=== PATIENT | male | born 1990 | race African-American/Black ===

== ENCOUNTER 2022-12-11 11:21 | Emergency (ER) | payer OTHER, SELFPAY ==
[2022-12-11] VITALS (19 sets, daily range): BP systolic 122–134; BP diastolic 81–95; PULSE 63–98; RESP 15–26; TEMP 36.7; O2SAT 95–100
--- NOTE | ~2022-12-11 | XR_ITS ---
EXAMINATION: XR chest 1V portable DATE: 12/11/2022 11:46 INDICATION: Intermittent chest pain. TECHNIQUE: A single frontal view of the chest was obtained. COMPARISON: None. FINDINGS: The chest demonstrates clear lungs without pneumonia, pleural effusion, or pneumothorax. Th e heart size is normal. IMPRESSION: 1. No acute cardiopulmonary disease. Reviewed, dictated and finalized at location A.
--- NOTE | 2022-12-11 11:22 | ECG_ITS ---
Measurements Intervals [place] Rate: 98 P: 52 [place]: 166 QRS: 49 QRSD: 86 T: 21 QT: 311 QTc: 398 Interpretive Statements SINUS RHYTHM NONSPECIFIC T-WAVE ABNORMALITY- INF/LAT LEADS BORDERLINE ECG NO PREVIOUS ECG AVAILABLE FOR COMPARISON Electronically Signed On 12-11-2022 11:29:54 CDT by Nitesh Cazares D.O.
[2022-12-11] MEDS: ASPIRIN 81 MG CHEWABLE TABLET 324 MG PO (11:32)
[2022-12-11] MEDS: Please add drug allergy info to patient profile. 1 EACH XX (11:33)
[2022-12-11 11:37] LABS: Basophils Percent Auto 0.2 % (0.2-1.2); Eosinophils Absolute Auto 0.1 K/mm3 (0-0.3); Eosinophils Percent Auto 1.1 % (0-4.4); Hematocrit 50.9 % (42.0-52.0); Hemoglobin 17.2 g/dL (14.0-18.0); Immature Granulocyte Absolute 0.02 K/mm3 (0.00-0.031); Immature Granulocyte Percent A 0.4 % (0-0.5); Lymphocytes Absolute Auto 2.79 K/mm3 (0.9-3.2); Lymphocytes Percent Auto 48.9 % (18.3-44.2); Mean Corpuscular HGB Conc 33.8 g/dl (32-36); Mean Corpuscular Hemoglobin 30.2 pg (26-34); Mean Corpuscular Volume 89.3 fl (80-100); Mean Platelet Volume 9.4 fl (7.4-10.4); Monocytes Absolute Auto 0.5 K/mm3 (0.1-0.6); Monocytes Percent Auto 8.1 % (2.6-8.5); Neutrophils Absolute Auto 2.4 K/mm3 (1.3-6.7); Neutrophils Percent Auto 41.3 % (45.5-73.1); Platelet Count Result 234 k/mm3 (150-375); Red Cell Distribution Width 13.3 % (11.5-14.5); White Blood Count 5.7 K/mm3 (4.5-10.0)
[2022-12-11 11:46] LABS: Prothrombin Time 13.2 Seconds (11.1-14.7)
[2022-12-11 11:47] LABS: Partial Thromboplastin Time 28.9 SECONDS (22.3-36.8)
[2022-12-11 11:53] LABS: Alanine Aminotransferase 32 U/L (6-50); Albumin Level 5.1 g/dL (3.5-5.1); Alkaline Phosphatase 66 U/L (38-126); Anion Gap 7 mmol/L (8-16); Aspartate Amino Transferase 37 U/L (17-59); Bilirubin,Total 1.1 mg/dL (0.2-1.3); Blood Urea Nitrogen 9 mg/dL (9-20); Calcium 9.5 mg/dL (8.4-10.2); Carbon Dioxide 30 mmol/L (22-30); Chloride 100 mmol/L (98-107); Estimated CRCL calculation 144 ml/min; Estimated Glomerular Filt Rate > 60; Glucose 110 mg/dL (65-110); Lipase 53 U/L (23-300); Potassium 4.4 mmol/L (3.4-5.0); Sodium 137 mmol/L (137-145)
--- NOTE | 2022-12-11 11:59 | ED.CHESTPAIN ---
HPI - Chest Pain General Chief Complaint: Chest Pain Stated Complaint: chest pain Time Seen by Provider: 12/11/22 11:25 History of Present Illness HPI narrative: 31-year-old male no medical problems presents to the emergency room for evaluation of chest pain. Patient describes the pain as a sharp pain that lasts 1 to 2 seconds. Denies any alleviating or aggravating factors. Patient states he has been experiencing discomfort since last night. Denies any radiating pain, shortness of breath, difficulty breathing, dizziness or lightheadedness. States he took an omeprazole prior to arrival that did not alleviate his symptoms. Related Data Allergies Allergy/AdvReac Type Severity Reaction Status Date / Time No Known Allergies Allergy Verified 12/11/22 11:30 Review of Systems Review of Systems: CONSTITUTIONAL: Denies fever, chills, or sweats. EYES: Denies visual changes, redness, or discharge. ENT: Denies rhinorrhea, congestion, sore throat, or otalgia. CARDIOVASCULAR: Reports chest pain, denies palpitations or edema RESPIRATORY: Denies cough or dyspnea. GASTROINTESTINAL: Denies abdominal pain, nausea, vomiting, or diarrhea. GENITOURINARY: Denies dysuria or hematuria. SKIN: Denies rash or itching. MUSCULOSKELETAL: Denies back pain, joint pain, or myalgia. NEUROLOGIC: Denies headache, numbness, dizziness, or weakness. PSYCHIATRIC: Denies anxiety or depression. Exam Narrative: GENERAL: Well-appearing, well-nourished, no physical limitations, and in no acute distress. HEAD: Normocephalic, atraumatic. EYES: Conjunctivae normal, PERRLA and EOMI. NECK: Supple. No meningeal signs. No carotid bruits or JVD CHEST: Clear to auscultation. No respiratory distress. No wheezes rales or rhonchi. HEART: Regular rate and rhythm. No murmur heard. Normal peripheral pulses. ABDOMEN: Soft, nontender, nondistended, normal active bowel sounds. EXTREMITIES: Normal range of motion. No edema. No clubbing or cyanosis SKIN: Warm, dry, no rash. No noted wounds NEURO: No focal deficits. Alert and oriented x3. MAEW. CN's II-XI intact bilaterally, normal gait PSYCH: Cooperative. Normal mood and affect. Course Vital Signs Vital signs: Vital Signs Temperature 36.7 C 12/11/22 11:24 Pulse Rate 98 12/11/22 11:24 Respiratory Rate 16 12/11/22 11:24 Blood Pressure 134/91 H 12/11/22 11:24 Pulse Oximetry 100 12/11/22 11:24 Oxygen Delivery Room Air 12/11/22 11:24 Temperature 36.7 C 12/11/22 11:24 Pulse Rate 80 12/11/22 13:46 Respiratory Rate 21 H 12/11/22 13:46 Blood Pressure 133/92 H 12/11/22 13:46 Pulse Oximetry 100 12/11/22 13:46 Oxygen Delivery Room Air 12/11/22 11:24 MDM - Chest Pain MDM Narrative Medical decision making narrative: 31-year-old male presented the emergency room for evaluation of intermittent chest pain that began last night. EKG showed no active ischemia. Chest x-ray showed no active cardiopulmonary processes. Troponin and delta Trope were both negative. Will have patient follow-up with cardiology for further evaluation and to establish care with PCP. Lab Data 12/11/22 11:28 12/11/22 11:28 Labs: Lab Results 12/11/22 12/11/22 Range/Units 11:28 13:50 WBC 5.7 (4.5-10.0) K/mm3 RBC 5.70 (4.6-6.20) M/mm3 Hgb 17.2 (14.0-18.0) g/dL Hct 50.9 (42.0-52.0) % MCV 89.3 (80-100) fl MCH 30.2 (26-34) pg MCHC 33.8 (32-36) g/dl RDW 13.3 (11.5-14.5) % Plt Count 234 (150-375) k/mm3 MPV 9.4 (7.4-10.4) fl Immature Gran % (Auto) 0.4 (0-0.5) % Neut % (Auto) 41.3 L (45.5-73.1) % Lymph % (Auto) 48.9 H (18.3-44.2) % [place] % (Auto) 8.1 (2.6-8.5) % Eos % (Auto) 1.1 (0-4.4) % Baso % (Auto) 0.2 (0.2-1.2) % Lymph # (Auto) 2.79 (0.9-3.2) K/mm3 [place] # (Auto) 0.5 (0.1-0.6) K/mm3 Eos # (Auto) 0.1 (0-0.3) K/mm3 Baso # (Auto) 0.0 (0.0-0.1) K/mm3 Abs Immat Gran (auto) 0.02 (0.00-0.031) K/mm3 A
[2022-12-11 12:02] LABS: Troponin I < 0.012 ng/mL (0.000-0.034)
[2022-12-11 14:34] LABS: Troponin I < 0.012 ng/mL (0.000-0.034)
== END 2022-12-11 14:54 | disposition home or self-care (01) ==
PROVIDERS: Emergency Medicine; Emergency Provider Nurse Practitioner Family; PCP Family Medicine
DX: R07.89 Other chest pain (principal)
CPT/HCPCS: 36415; 71045; 80053; 83690; 84484; 85025; 85610; 85730; 93005; 99284; A9270